=== PATIENT | male | born 1955 | race Caucasian/White ===

== ENCOUNTER 2017-08-06 10:28 | Emergency (ER) | payer OTHER ==
[~2017-08-06] VITALS: Ht 170.2 cm; Wt 72.6 kg
[~2017-08-06 10:28] MED LIST: ATIVAN0.5 MG PO; CELEBREX50 MG PO; HYDROCHLOROTH12.5 M1 PO; Intestinex CAP PO; NORVASC5 MG PO; OXYC1TAB9 PO; PANTOPRAZOLE SO40 MG PO; PROTONIX40 MG PO; ZOCOR20 MG PO
[2017-08-07] MEDS ORDERED: DICY20TA PO (05:28)
[2017-08-07] MEDS ORDERED: ZANTAC300 MG PO (05:28)
== END 2017-08-07 05:57 | disposition home or self-care (01) ==
LOC: ER 10:28
DX: K52.9 Noninfective gastroenteritis and colitis, unspecified (principal)

== ENCOUNTER 2017-09-25 06:30 | Day surgery (SDC) | payer OTHER ==
[~2017-09-25 06:30] MED LIST changes: +DICY20TA PO; +ZANTAC300 MG PO
== END 2017-09-25 11:50 | disposition home or self-care (01) ==
LOC: AMB-ENDOS 06:30 → CIR.AMB 12:30
DX: K57.32 Diverticulitis of large intestine without perforation or abscess without bleeding (principal); K64.8 Other hemorrhoids